=== PATIENT | male | born 1960 | race Caucasian/White ===

== ENCOUNTER 2019-03-02 09:00 | Emergency (ER) | payer OTHER ==
[2019-03-02 09:19] VITALS: BP 139/90
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
== END 2019-03-02 10:02 | disposition home or self-care (01) ==
LOC: UCEAST 09:00
DX: H11.32 Conjunctival hemorrhage, left eye (principal)
CPT/HCPCS: 99211; G0463